=== PATIENT | female | born 1990 | race Caucasian/White ===

== ENCOUNTER 2019-12-21 22:45 | Emergency (ER) | payer OTHER ==
[2019-12-21] MEDS ORDERED: Lidocaine/EPINEPHrine/Tetracaine Soln 5 ML Each TOP ONE ×2 (23:02)
[2019-12-21] MEDS ORDERED: Diphtheria,Pertussis(Acell),Tetanus Vaccine 0.5 ML SDV IM ONE (23:19)
[2019-12-21] MEDS ORDERED: Silver Nitrate Applicator Each TOP ONE (23:19)
--- NOTE | 2019-12-21 23:23 | EDM.PDOC ---
ED HPI GENERAL MEDICAL PROBLEM - General Chief Complaint: Laceration Stated Complaint: CUT FINGER Time Seen by Provider: 12/21/19 22:45 Source of Information: Reports: Patient History Limitations: Reports: No Limitations - History of Present Illness INITIAL COMMENTS - FREE TEXT/NARRATIVE: Patient presented to the ED because of a left index finger injury. She was chopping some veggies and accidentally cut the tip of her left index finger. She is able to extend and flex her finger without any difficulty. - Related Data Allergies Allergy/AdvReac Type Severity Reaction Status Date / Time No Known Allergies Allergy Verified 12/21/19 23:15 Home Meds: Home Meds NK [No Known Home Meds] 12/21/19 [History] ED ROS GENERAL - Review of Systems Review Of Systems: See Below Constitutional: Reports: No Symptoms HEENT: Reports: No Symptoms Respiratory: Reports: No Symptoms Cardiovascular: Reports: No Symptoms Endocrine: Reports: No Symptoms GI/Abdominal: Reports: No Symptoms : Reports: No Symptoms Musculoskeletal: Reports: No Symptoms Skin: Reports: Wound Neurological: Reports: No Symptoms Psychiatric: Reports: No Symptoms ED EXAM, SKIN/RASH Exam: See Below Exam Limited By: No Limitations General Appearance: Alert, No Apparent Distress Eye Exam: Bilateral Eye: PERRL Ears: Normal External Exam, Normal Canal Nose: Normal Inspection, Normal Mucosa Throat/Mouth: Normal Inspection, Normal Lips, Normal Teeth Head: Atraumatic, Normocephalic Neck: Normal Inspection, Supple, Non-Tender, Full Range of Motion Respiratory/Chest: No Respiratory Distress, Lungs Clear, Normal Breath Sounds Cardiovascular: Normal Peripheral Pulses, Regular Rate, Rhythm, No Edema, No Gallop GI/Abdominal: Normal Bowel Sounds, Soft, Non-Tender Back Exam: Normal Inspection, Full Range of Motion Extremities: Normal Inspection, Normal Range of Motion, Non-Tender Neurological: Alert, Oriented, CN II-XII Intact, Normal Cognition Psychiatric: Normal Affect, Normal Mood Skin: Warm, Intact, Normal Color, No Rash Location, Skin: Upper Extremity, Left Course - Vital Signs Text/Narrative:: A finger tourniquet was applied to stopped the bleeding. LET top to numb the finger Silver nitrate was use to cauterized the bleeder Last Recorded V/S: Last Vital Signs Temp 36.6 C 12/21/19 22:50 Pulse 90 12/21/19 22:50 Resp 18 12/21/19 22:50 BP 141/90 H 12/21/19 22:50 Pulse Ox 98 12/21/19 22:50 - Orders/Labs/Meds Orders: Active Orders 24 hr Category Date Time Status Vaccines to be Administered [RC] PER UNIT ROUTINE Care 12/21/19 23:19 Active Meds: Medications Discontinued Medications Generic Name Dose Route Start Last Admin Trade Name Amrit PRN Reason Stop Dose Admin Diphtheria/Tetanus/Acell Pertussis 0.5 ml 12/21/19 23:19 12/21/19 23:25 Adacel IM 12/21/19 23:20 0.5 ml .ONCE ONE Administration Lidocaine/Tetracaine Confirm 12/21/19 23:02 12/22/19 00:04 Let Soln Administered 12/21/19 23:03 Not Given Dose 5 ml TOP .STK-MED ONE Lidocaine/Tetracaine 5 ml 12/21/19 23:02 12/21/19 23:02 Let Soln TOP 12/21/19 23:03 5 ml ONETIME ONE Administration Silver Nitrate 1 each 12/21/19 23:19 12/21/19 23:19 Silver Nitrate TOP 12/21/19 23:20 1 each ONETIME ONE Administration Departure - Departure Time of Disposition: 23:50 Disposition: Home, Self-Care 01 Condition: Good Clinical Impression: Finger avulsion - Discharge Information Instructions: Wound Care, Adult Referrals: PCP,None [Primary Care Provider] - Forms: ED Department Discharge Additional Instructions: Please read discharge instructions on finger avulsion and laceration Keep the wound air dry when you're inside the house When you're out apply vaseline before covering it Follow up as needed Sepsis Event Note (ED) - Focused Exam Vital Signs: Vital Signs Temp Pulse Resp BP Pulse Ox 12/21/19 22:50 36.6 C 90 18 141/90 H 98 - My Orders Last 24 Hours: My Active Orders 12/21/19 23:19 Vaccines to be Administered [RC] PER UNIT ROUTINE - Assessment/Plan Last 24 Hours: My Active Orders 12/21/19 23:19 Vaccines to be Administered [RC] PER UNIT ROUTINE
== END 2019-12-21 23:40 | disposition home or self-care (01) ==
LOC: FB.ED 22:45
DX: S61.201A Unspecified open wound of left index finger without damage to nail, initial encounter (principal); Z23 Encounter for immunization; W26.8XXA Contact with other sharp object(s), not elsewhere classified, initial encounter
CPT/HCPCS: 90471; 90715; 99283; A9270